=== PATIENT | female | born 1995 | race Caucasian/White ===

== ENCOUNTER → 2023-06-20 11:20 | Outpatient (REF) | payer OTHER, SELFPAY | LOC: PNTC 11:20 | PROVIDERS: ATTENDING PHYSICIAN Obstetrics & Gynecology | DX: O34.219 Maternal care for unspecified type scar from previous cesarean delivery (principal); O99.280 Endocrine, nutritional and metabolic diseases complicating pregnancy, unspecified trimester; O43.219 Placenta accreta, unspecified trimester | CPT/HCPCS: 76816; 93976 ==

== ENCOUNTER 2023-09-24 06:29 | Inpatient (IN) | payer OTHER, SELFPAY ==
[2023-09-24 06:35] VITALS: BMI 30.3
[2023-09-24 07:26] VITALS: BP 115/84; BMI 30.3
[2023-09-24] MEDS: LR 1000 IV (07:30)
[2023-09-24 07:34] LABS: Hematocrit 32.7 % (37.0-47.0); Hemoglobin 11.3 g/dL (12.0-16.0); Mean Corp Hgb Conc. 34.6 g/dL (33.0-37.0); Mean Corpuscular Hgb 30.1 pg (27.0-31.0); Mean Corpuscular Volume 87.2 fL (81.0-99.0); Mean Platelet Volume 9.9 fL (7.4-10.4); Platelet Count 240 10^3/uL (130-400); Red Blood Cell Count 3.75 10^6/uL (4.20-5.40); Red Cell Dist. Width 13.2 % (11.5-14.5); White Blood Cell Count 8.2 10^3/uL (4.8-10.8)
[2023-09-24] MEDS: TYLENOL 1000 MG PO (07:35)
[2023-09-24] MEDS: ANCEF 10 IV (08:19)
[2023-09-24] MEDS: BICITRA 30 ML PO (08:19)
[2023-09-24] MEDS: PITOCIN 30 UNITS/NSS 500 ML IV ×2 (08:50→14:09)
[2023-09-24] MEDS: TORADOL 15 MG IV ×3 (10:44→22:08)
[2023-09-25] MEDS: TORADOL 15 MG IV ×2 (03:48→10:21)
[2023-09-25 04:41] LABS: Hematocrit 27.2 % (37.0-47.0); Hemoglobin 9.4 g/dL (12.0-16.0); Mean Corp Hgb Conc. 34.6 g/dL (33.0-37.0); Mean Corpuscular Hgb 30.6 pg (27.0-31.0); Mean Corpuscular Volume 88.6 fL (81.0-99.0); Mean Platelet Volume 10.2 fL (7.4-10.4); Platelet Count 216 10^3/uL (130-400); Red Blood Cell Count 3.07 10^6/uL (4.20-5.40); Red Cell Dist. Width 13.2 % (11.5-14.5); White Blood Cell Count 12.6 10^3/uL (4.8-10.8)
[2023-09-25] MEDS: SYNTHROID 200 MCG PO (05:48)
--- NOTE | 2023-09-25 08:16 | W.PN.ANS.POP ---
Anesthesia Post Operative
- Anesthesia Post Op Note
Vital Signs Stable-See Nursing Note: Yes
Airway Patent: Yes
Adequate Pain Control: Yes
Change in Mental Status: No
Current Postoperative Nausea & Vomiting: No
Anesthesia Complications: No
General Anesthetic Recall: No
Unplanned Admission: No
Post Op Hydration Adequate: Yes
[2023-09-25] MEDS: SENOKOT-S 1 TABLET PO (10:22)
[2023-09-25] MEDS: MYLICON 80 MG PO (16:28)
[2023-09-25] MEDS: MOTRIN 600 MG PO (16:28)
[2023-09-26] MEDS: SYNTHROID 200 MCG PO (05:51)
[2023-09-26] MEDS: FEOSOL 325 MG PO (07:51)
[2023-09-26] MEDS: SENOKOT-S 1 TABLET PO (07:51)
[2023-09-26] MEDS: TYLENOL 650 MG PO (07:56)
[2023-09-26] MEDS: M-M-R II 0.5 ML SC (09:56)
[2023-09-26] MEDS: MYLICON 80 MG PO (10:04)
[2023-09-27 15:08] LABS: Syphilis/T. pallidum Ab Reflex Negative (Negative)
== END 2023-09-26 13:03 | disposition home or self-care (01) | DRG 788 ==
LOC: LDRP 06:29
PROVIDERS: Obstetrics & Gynecology; ADMITTING PHYSICIAN Obstetrics & Gynecology; FAMILY PHYSICIAN Family Medicine
PROC: 10D00Z1 Extraction of Products of Conception, Low, Open Approach (ICD-10-PCS; 2023-09-24)
PROC: 6A550ZT Pheresis of Cord Blood Stem Cells, Single (ICD-10-PCS; 2023-09-24)
PROC: 3E0134Z Introduction of Serum, Toxoid and Vaccine into Subcutaneous Tissue, Percutaneous Approach (ICD-10-PCS; 2023-09-26)
DX: O34.211 Maternal care for low transverse scar from previous cesarean delivery (principal); Z3A.39 39 weeks gestation of pregnancy; Z37.0 Single live birth; Z23 Encounter for immunization; Z85.850 Personal history of malignant neoplasm of thyroid; O99.284 Endocrine, nutritional and metabolic diseases complicating childbirth; E89.0 Postprocedural hypothyroidism; O99.02 Anemia complicating childbirth; D50.9 Iron deficiency anemia, unspecified; O99.824 Streptococcus B carrier state complicating childbirth; O69.81X0 Labor and delivery complicated by cord around neck, without compression, not applicable or unspecified
CPT/HCPCS: 88307; 36415; 85027; 86780; 86850; 86900; 86901; 90707

== ENCOUNTER 2024-04-20 19:57 | Emergency (ER) | payer OTHER, SELFPAY ==
[2024-04-20 20:03] VITALS: BP 130/80
[2024-04-20 21:15] LABS: HCG, Urine Qualitative Screen Negative
[2024-04-20 21:16] LABS: Urine Albumin Negative (Neg - Trace); Urine Bilirubin Negative (Negative); Urine Character Clear (Clear); Urine Color Yellow; Urine Glucose Negative (Negative); Urine Ketone Negative (Negative); Urine Leukocyte Negative (Negative); Urine Nitrite Negative (Negative); Urine Occult Blood Negative (Negative); Urine Urobilinogen Negative (Neg - 1+)
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
[2024-04-20] MEDS: DELTASONE 20 MG PO (22:30)
== END 2024-04-20 22:41 | disposition home or self-care (01) ==
LOC: EMR 19:57
PROVIDERS: Emergency Medicine; EMERGENCY PHYSICIAN Emergency Medicine; FAMILY PHYSICIAN Family Medicine
DX: M54.14 Radiculopathy, thoracic region (principal); V89.2XXA Person injured in unspecified motor-vehicle accident, traffic, initial encounter; Y92.410 Unspecified street and highway as the place of occurrence of the external cause; E03.9 Hypothyroidism, unspecified; Z85.850 Personal history of malignant neoplasm of thyroid
CPT/HCPCS: 99283; 72072; 81003; 81025